=== PATIENT | female | born 1970 | race Caucasian/White ===

== ENCOUNTER 2019-07-04 20:52 | Emergency (ER) | payer MEDICARE, MEDICAID ==
[2019-07-04] MEDS ORDERED: Ketorolac 30 MG/ML SDV IVPUSH ONE (21:58)
[2019-07-04] MEDS ORDERED: Prochlorperazine 10 MG/2 ML SDV IVPUSH ONE (21:58)
[2019-07-04] MEDS ORDERED: Lactated Ringers 1,000 ML IV SCH (22:00)
--- NOTE | 2019-07-04 22:00 | EDM.PDOC ---
ED HPI GENERAL MEDICAL PROBLEM - General Chief Complaint: Flank Pain Stated Complaint: [facility] Time Seen by Provider: 07/04/19 21:54 Source of Information: Reports: Patient, EMS, RN Notes Reviewed History Limitations: Reports: No Limitations - History of Present Illness INITIAL COMMENTS - FREE TEXT/NARRATIVE: 49-year-old female presents emergency department today complaint of left flank pain, she states the pain came on suddenly today it does get very intense and then relaxes she has had some nausea and vomiting as well does have a history of nephrolithiasis several years ago arrived by EMS bilat flank pain Pain Score (Numeric/FACES): 8 - Related Data Allergies Allergy/AdvReac Type Severity Reaction Status Date / Time cefaclor [From Ceclor] Allergy Hives Verified 07/04/19 21:03 esomeprazole [From Nexium] Allergy Hives Verified 07/04/19 21:03 Penicillins Allergy Hives Verified 07/04/19 21:03 Home Meds: Home Meds Folic Acid 1 mg PO DAILY 07/04/19 [History] Hydrocodone/Acetaminophen [Hydrocodon-Acetaminophen 5-325] 1 each PO TID PRN # 10 tablet 07/04/19 [Rx] Ketorolac [Toradol] 10 mg PO TID PRN #20 tab 07/04/19 [Rx] Levothyroxine 200 mcg PO DAILY 07/04/19 [History] Methotrexate Sodium [Methotrexate] 25 mg PO WEEKLY 07/04/19 [History] Milnacipran [Savella] 50 mg PO BID 07/04/19 [History] Naproxen 500 mg PO BIDMEALS 07/04/19 [History] Omeprazole 20 mg PO DAILY 07/04/19 [History] buPROPion HCL [Bupropion Xl] 300 mg PO DAILY 07/04/19 [History] buPROPion HCl [Bupropion Xl] 150 mg PO DAILY 07/04/19 [History] predniSONE [Prednisone] 5 - 10 mg PO DAILY PRN 07/04/19 [History] Past Medical History Gastrointestinal History: Reports: GERD Genitourinary History: Reports: Renal Calculus, UTI, 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: , 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 Musculoskeletal History: Reports: Fracture Psychiatric History: Reports: Anxiety, Bipolar, Depression Endocrine/Metabolic History: Reports: Hypothyroidism, Obesity/BMI 30+ - Past Surgical History HEENT Surgical History: Reports: Eye Surgery, Tonsillectomy GI Surgical History: Reports: Cholecystectomy Female Surgical History: Reports: Oophorectomy, Tubal Ligation Musculoskeletal Surgical History: Reports: Shoulder Surgery Social & Family History - Tobacco Use Smoking Status *Q: Current Every Day Smoker Years of Tobacco use: 40 Packs/Tins Daily: 0.5 - Caffeine Use Caffeine Use: Reports: Soda - Recreational Drug Use Recreational Drug Use: No ED ROS GENERAL - Review of Systems Review Of Systems: See Below Constitutional: Reports: No Symptoms Respiratory: Reports: No Symptoms Cardiovascular: Reports: No Symptoms GI/Abdominal: Reports: Nausea, Vomiting : Reports: Flank Pain ED EXAM, GI/ABD - Physical Exam Exam: See Below Exam Limited By: No Limitations General Appearance: Alert, WD/WN, Mild Distress Respiratory/Chest: No Respiratory Distress, Lungs Clear, Normal Breath Sounds, No Accessory Muscle Use, Chest Non-Tender Cardiovascular: Regular Rate, Rhythm, No Murmur GI/Abdominal Exam: Soft, No Organomegaly, No Distention, Tender (Tender along left flank) Course - Vital Signs Last Recorded V/S: Last Vital Signs Temp 97.3 F 07/04/19 20:58 Pulse 97 07/04/19 22:38 Resp 16 07/04/19 20:58 BP 96/53 L 07/04/19 22:38 Pulse Ox 98 07/04/19 22:38 - Orders/Labs/Meds Orders: Active Orders 24 hr Category Date Time Status Lactated Ringers [Ringers, Lactated] 1,000 ml Med 07/04/19 22:00 Active IV ASDIRECTED Medication Orders Lactated Ringer's (Ringers, Lactated) 1,000 mls @ 999 mls/hr IV ASDIRECTED AUGUSTUS Last Admin: 07/04/19 22:11 Dose: 999 mls/hr Labs: Laboratory Tests 07/04/19 07/04/19 07/04/19 Range/Units 21:23 22:06 22:06 WBC 9.8 (4.5-11.0) K/uL RBC 4.39 (3.30-5.50) M/uL Hgb 13.4 (12.0-15.0) g/dL Hct 41.4 (36.0-48.0) % MCV 94 (80-98) fL MCH 31 (27-31) pg MCHC 32 (32-36) % Plt Count 287 (150-400) K/uL Neut % (Auto) 89 H (36-66) % Lymph % (Auto) 9 L (24-44) % Garfield % (Auto) 1 L (2-6) % Eos % (Auto) 1 L (2-4) % Baso % (Auto) 0 (0-1) % Sodium 141 (140-148) mmol/L Potassium 4.1 (3.6-5.2) mmol/L Chloride 105 (100-108) mmol/L Carbon Dioxide 27 (21-32) mmol/L Anion Gap 8.7 (5.0-14.0) mmol/L BUN 19 H (7-18) mg/dL Creatinine 0.8 (0.6-1.0) mg/dL Est Cr Clr Drug Dosing 68.76 mL/min Estimated GFR (MDRD) > 60 (>60) Glucose 91 (74-106) mg/dL Calcium 8.5 (8.5-10.1) mg/dL Urine Color Yellow (YELLOW) Urine Appearance Clear (CLEAR) Urine pH 7.0 (5.0-8.0) Ur Specific Artie 1.025 (1.008-1.030) Urine Protein Negative (NEGATIVE) mg/dL Urine Glucose (UA) Negative (NEGATIVE) mg/dL Urine Ketones Negative (NEGATIVE) mg/dL Urine Occult Blood Small H (NEGATIVE) Urine Nitrite Negative (NEGATIVE) Urine Bilirubin Negative (NEGATIVE) Urine Urobilinogen 1.0 (0.2-1.0) EU/dL Ur Leukocyte Esterase Trace H (NEGATIVE) Urine RBC 0-5 (0-5) Urine WBC 0-5 (0-5) Ur Epithelial Cells Few Amorphous Sediment Few Urine Bacteria Not seen Urine Mucus Not seen Meds: Medications Generic Name Dose Route Start Last Admin Trade Name Freq PRN Reason Stop Dose Admin Lactated Ringer's 1,000 mls @ 999 mls/hr 07/04/19 22:00 07/04/19 22:11 Ringers, Lactated IV 999 mls/hr ASDIRECTED AUGUSTUS Administration Discontinued Medications Generic Name Dose Route Start Last Admin Trade Name Freq PRN Reason Stop Dose Admin Ketorolac Tromethamine 30 mg 07/04/19 21:58 07/04/19 22:09 Toradol IVPUSH 07/04/19 21:59 30 mg ONETIME ONE Administration Prochlorperazine Edisylate 5 mg 07/04/19 21:58 07/04/19 22:06 Compazine IVPUSH 07/04/19 21:59 5 mg ONETIME ONE Administration Departure - Departure Time of Disposition: 22:54 Disposition: Home, Self-Care 01 Condition: Fair Clinical Impression: Nephrolithiasis - Discharge Information Prescriptions: Hydrocodone/Acetaminophen [Hydrocodon-Acetaminophen 5-325] 1 each PO TID PRN # 10 tablet PRN Reason: Pain Ketorolac [Toradol] 10 mg PO TID PRN #20 tab PRN Reason: Pain Instructions: Kidney Stones, [id number] Referrals: PCP,None [Primary Care Provider] - Forms: ED Department Discharge Additional Instructions: Continue to push fluids, try to strain your urine for the stone for analysis later on, use ketorolac for baseline pain control, use hydrocodone for breakthrough pain, please follow-up with your primary care in the next 3 to 5 days for reevaluation, call or return to the emergency department worsening of symptoms Sepsis Event Note - Evaluation Sepsis Screening Result: No Definite Risk - Focused Exam Vital Signs: Vital Signs Temp Pulse Resp BP Pulse Ox 07/04/19 22:38 97 96/53 L 98 07/04/19 20:58 97.3 F 95 16 126/79 100 Date Exam was Performed: 07/04/19 Time Exam was Performed: 22:53 - My Orders Last 24 Hours: My Active Orders 07/04/19 22:00 Lactated Ringers [Ringers, Lactated] 1,000 ml IV ASDIRECTED - Assessment/Plan Last 24 Hours: My Active Orders 07/04/19 22:00 Lactated Ringers [Ringers, Lactated] 1,000 ml IV ASDIRECTED Plan: Assessment Acuity = acute Site and laterality = 5 mm left-sided nephrolithiasis Etiology = unknown Manifestations = flank pain, nausea, vomiting Location of injury = Home Lab values = CBC, CMP, urinalysis unremarkable CT scan describes stone above Plan I did review lab work with her she had good relief from the Toradol prescription written for ketorolac 10 mg p.o. 3 times daily PRN total #20 as well as hydrocodone 5/325 1 tab p.o. 3 times daily PRN total #10 both those medications faxed to [facility] have her follow-up with her primary care in 3 to 5 days if no improvement or passing This note was dictated using [employer] voice recognition software please call with any questions on syntax or grammar.
--- NOTE | 2019-07-04 22:37 | CRLCT ---
INDICATION: Left flank pain TECHNIQUE: CT abdomen and pelvis without contrast. COMPARISON: May 22, 2007 FINDINGS: Lower chest: Unremarkable. Liver: Unremarkable. Spleen: Unremarkable. Pancreas: Unremarkable. Gallbladder and bile ducts: S/p cholecystectomy. Adrenal glands: Unremarkable. Kidneys: [id number] left hydronephrosis and hydroureter secondary to a 5 mm stone at the left ureterovesical junction. No additional renal stones identified in the left kidney. There is a punctate, nonobstructive stone in the right kidney. GI tract: Unremarkable. Appendix is normal. Vascular structures: Unremarkable. Lymph nodes: Unremarkable. Miscellaneous: Unremarkable. No free air or significant free fluid. Pelvic Organs: 3.3 cm cystic lesion in the right adnexa. Bones: Unremarkable for age. IMPRESSION: [id number] left hydronephrosis and hydroureter secondary to a 5 mm stone at the left ureterovesical junction. Punctate nonobstructive right nephrolithiasis. Cystic lesion in the right adnexa. This may represent a physiologic ovarian cyst. Consider nonurgent pelvic ultrasound for further evaluation if clinically indicated. Status post cholecystectomy. Please note that all CT scans at this facility use dose modulation, iterative reconstruction, and/or weight-based dosing when appropriate to reduce radiation dose to as low as reasonably achievable. Dictated by Jennie Damico MD @ Jul 04 2019 10:36PM Signed by Dr. Jennie Damico @ Jul 04 2019 10:36PM
== END 2019-07-04 23:11 | disposition home or self-care (01) ==
LOC: JP.ED 20:52
DX: N13.2 Hydronephrosis with renal and ureteral calculous obstruction (principal); E03.9 Hypothyroidism, unspecified; E66.9 Obesity, unspecified; Z68.39 Body mass index [BMI] 39.0-39.9, adult; F31.9 Bipolar disorder, unspecified; F41.9 Anxiety disorder, unspecified; K21.9 Gastro-esophageal reflux disease without esophagitis; Z88.1 Allergy status to other antibiotic agents; Z88.0 Allergy status to penicillin; Z88.8 Allergy status to other drugs, medicaments and biological substances
CPT/HCPCS: 36415; 74176; 80048; 81001; 85025; 96361; 96374; 96375; 99285; J0780; J1885; J7120

== ENCOUNTER 2020-08-19 22:41 | Emergency (ER) | payer MEDICARE, MEDICAID ==
[2020-08-20] MEDS ORDERED: Bacitracin Oint 1 GM U/D Packet TOP ONE (00:07)
[2020-08-20] MEDS ORDERED: Acetaminophen/HYDROcodone 325-5 MG Tab PO ONE (00:07)
--- NOTE | 2020-08-20 00:34 | EDM.PDOC ---
ED HPI GENERAL MEDICAL PROBLEM - General Chief Complaint: Lower Extremity Injury/Pain Stated Complaint: CUT ON R LEG ABOVE KNEE Time Seen by Provider: 08/19/20 22:52 Source of Information: Reports: Patient History Limitations: Reports: No Limitations - History of Present Illness INITIAL COMMENTS - FREE TEXT/NARRATIVE: Chief complaint: injury to right knee This is a 50 year old female presents to the ER with concerns of injury to the right knee. She was unloading a riding buyer and it fell back on her, the bagger hit her right knee. has a cut just above the knee with pain and edema to knee. 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) Right Knee Pain Score (Numeric/FACES): 8 - Related Data Allergies Allergy/AdvReac Type Severity Reaction Status Date / Time cefaclor [From Ceclor] Allergy Hives Verified 08/20/20 00:20 esomeprazole [From Nexium] Allergy Hives Verified 08/20/20 00:20 Penicillins Allergy Hives Verified 08/20/20 00:20 Home Meds: Home Meds Folic Acid 1 mg PO DAILY 07/04/19 [History] Levothyroxine 200 mcg PO DAILY 07/04/19 [History] Milnacipran [Savella] 50 mg PO BID 07/04/19 [History] Naproxen 500 mg PO BIDMEALS 07/04/19 [History] Omeprazole 20 mg PO DAILY 07/04/19 [History] buPROPion HCL [Bupropion Xl] 150 mg PO DAILY 07/04/19 [History] buPROPion HCL [Bupropion Xl] 300 mg PO DAILY 07/04/19 [History] metHOTREXate sodium [Methotrexate] 25 mg PO WEEKLY 07/04/19 [History] predniSONE [Prednisone] 5 - 10 mg PO DAILY PRN 07/04/19 [History] Past Medical History Gastrointestinal History: Reports: GERD Genitourinary History: Reports: Renal Calculus, UTI, 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: , 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 Musculoskeletal History: Reports: Fracture Psychiatric History: Reports: Anxiety, Bipolar, Depression Endocrine/Metabolic History: Reports: Hypothyroidism, Obesity/BMI 30+ - Infectious Disease History Infectious Disease History: Reports: Chicken Pox - Past Surgical History HEENT Surgical History: Reports: Eye Surgery, Tonsillectomy GI Surgical History: Reports: Cholecystectomy Female Surgical History: Reports: Oophorectomy, Tubal Ligation Musculoskeletal Surgical History: Reports: Shoulder Surgery Social & Family History - Tobacco Use Tobacco Use Status *Q: Current Every Day Tobacco User Years of Tobacco use: 41 Packs/Tins Daily: 0.5 - Caffeine Use Caffeine Use: Reports: Coffee, Soda, Tea - Recreational Drug Use Recreational Drug Use: No - Living Situation & Occupation 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, 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.) Review of Systems - Review of Systems Review Of Systems: See Below Constitutional: Reports: No Symptoms Eyes: Reports: No Symptoms Ears: Reports: No Symptoms Nose: Reports: No Symptoms Mouth/Throat: Reports: No Symptoms Respiratory: Reports: No Symptoms Cardiovascular: Reports: No Symptoms Musculoskeletal: Reports: Leg Pain, Joint Pain (right knee) Skin: Reports: Wound (right distal thigh with 1.5 cm laceration) Neurological: Reports: No Symptoms Psychiatric: Reports: No Symptoms ED EXAM, GENERAL - Physical Exam Exam: See Below Exam Limited By: No Limitations General Appearance: Alert, WD/WN, Mild Distress Respiratory/Chest: No Respiratory Distress Cardiovascular: Regular Rate, Rhythm Extremities: Joint Swelling (right knee increase pain with flexion, mild edema and bruising, laceration noted), Limited Range of Motion (right knee) Neurological: Alert, Oriented, CN II-XII Intact, Normal Cognition, Normal Gait, Normal Reflexes, No Motor/Sensory Deficits Psychiatric: Normal Affect, Normal Mood Skin Exam: Wound/Incision (laceration 1.5 cm right distal thigh.) Lymphatic: No Adenopathy ED TRAUMA EXTREMITY PROCEDURES - Laceration/Wound Repair Right Anterior Distal Knee Lac/Wound Length In cm: 1.5 Appearance: Subcutaneous, Linear, Clean Distal NVT: No Tendon Injury Anesthetic Type: Local Local Anesthesia - Lidocaine (Xylocaine): 1% Plain Local Anesthetic Volume: 5cc Skin Prep: Providone-Iodine (Betadine) Saline Irrigation (cc's): 40 Exploration/Debridement/Repair: Wound Explored, No Foreign Material Found Closed With: Sutures Suture Size: 4-0 Suture Type: Prolene, Interrupted, Simple # of Sutures: 3 Sterile Dressing Applied: Nurse Tetanus Status Addressed: Other (2015) Complications: No Course - Vital Signs Last Recorded V/S: Last Vital Signs Temp 97.5 F 08/20/20 00:14 Pulse 91 08/20/20 00:14 Resp 16 08/20/20 00:14 BP 117/75 08/20/20 00:14 Pulse Ox 98 08/20/20 00:14 - Orders/Labs/Meds Orders: Active Orders 24 hr Category Date Time Status Knee 3V Rt [CR] Stat Exams 08/20/20 00:05 Taken DAMIAN Bandage [Elastic Wrap] [OM.PC] Routine Oth 08/20/20 01:01 Ordered Meds: Medications Discontinued Medications Generic Name Dose Route Start Last Admin Trade Name Freq PRN Reason Stop Dose Admin Hydrocodone Bitart/Acetaminophen 1 tab 08/20/20 00:07 08/20/20 00:12 Acetaminophen/Hydrocodone 325-5 Mg Tab PO 08/20/20 00:08 1 tab ONETIME ONE Administration Bacitracin 1 dose 08/20/20 00:07 08/20/20 00:14 Bacitracin Oint 1 Gm U/D Packet TOP 08/20/20 00:08 1 dose ONETIME ONE Administration Lidocaine HCl 5 ml 08/20/20 00:06 08/20/20 00:14 Lidocaine 1% 5 Ml Sdv INJECT 08/20/20 00:07 5 ml ONETIME ONE Administration - Radiology Interpretation Free Text/Narrative:: 1. laceration repair with 3 sutures and bandage applied 2. xray of right knee to rule out any acute bony injury 3. hydrocodone 5-325 mg for pain control Ms. Driscoll agrees with plan of care. xray of right knee negative for any acute bony injury, radiology report pending. Departure - Departure Time of Disposition: 01:03 Disposition: Home, Self-Care 01 Preliminary Cause of *Q: Sepsis & Multi System Organ Failure Clinical Impression: Sprain of knee Laceration of knee, right Qualifiers: Encounter type: initial encounter Qualified Code(s): S81.011A - Laceration without foreign body, right knee, initial encounter - Discharge Information *PRESCRIPTION DRUG MONITORING PROGRAM REVIEWED*: Not Applicable *COPY OF PRESCRIPTION DRUG MONITORING REPORT IN PATIENT CAMILO: Not Applicable Instructions: Knee Sprain, Adult, [id number], Laceration Care, Adult, [id number] Referrals: Hugh Pineda MD [Primary Care Provider] - Forms: ED Department Discharge, ED Return to Work/School Form Care Plan Goals: right knee sprain -xray is negative for acute bony injury, radiology report pending -take anti-inflammatory pain meds as needed for pain control -Hydrocodone 5-325 mg one every 4 to 6 hours as need for acute pain -damian wrap -ice for two days -avoid bending, lifting or twisting of knee -follow up in Primary Care for recheck if not improved Right leg- laceration -repaired with 3 sutures -cover and apply antibiotic ointment to wound for 2- 3 days, then keep clean and dry -suture removal in 7 to 10 days -avoid immersion of wound in bath, [place] water or swimming pools til well healed. Return to ER for any increased pain, swelling, redness, drainage, fever, chills or not improved. Sepsis Event Note (ED) - Evaluation Sepsis Screening Result: No Definite Risk - Focused Exam Vital Signs: Vital Signs Temp Pulse Resp BP Pulse Ox 08/20/20 00:14 97.5 F 91 16 117/75 98 08/19/20 23:55 97.5 F 91 16 117/75 98 - Problem List & Annotations (1) Laceration of knee, right SNOMED Code(s): 85437164845837014 Code(s): S81.011A - LACERATION WITHOUT FOREIGN BODY, RIGHT KNEE, INIT ENCNTR Status: Acute Priority: High Current Visit: Yes Qualifiers: Encounter type: initial encounter Qualified Code(s): S81.011A - Laceration without foreign body, right knee, initial encounter (2) Sprain of knee SNOMED Code(s): 62463905 Code(s): S83.90XA - SPRAIN OF UNSPECIFIED SITE OF UNSPECIFIED KNEE, INIT ENCNTR Status: Acute Priority: High Current Visit: Yes - Problem List Review Problem List Initiated/Reviewed/Updated: Yes - My Orders Last 24 Hours: My Active Orders 08/20/20 00:05 Knee 3V Rt [CR] Stat 08/20/20 01:01 DAMIAN Bandage [Elastic Wrap] [OM.PC] Routine - Assessment/Plan Last 24 Hours: My Active Orders 08/20/20 00:05 Knee 3V Rt [CR] Stat 08/20/20 01:01 DAMIAN Bandage [Elastic Wrap] [OM.PC] Routine Plan: right knee sprain -take anti-inflammatory pain meds as needed for pain control -Hydrocodone 5-325 mg one every 4 to 6 hours as need for acute pain -damian wrap -ice for two days -avoid bending, lifting or twisting of knee -follow up in Primary Care for recheck if not improved Right leg- laceration -repaired with 3 sutures -cover and apply antibiotic ointment to wound for 2- 3 days, then keep clean and dry -suture removal in 7 to 10 days -avoid immersion of wound in bath, [place] water or swimming pools til well healed. Return to ER for any increased pain, swelling, redness, drainage, fever, chills or not improved.
--- NOTE | 2020-08-21 09:43 | CR ---
Knee 3V Rt CLINICAL HISTORY: Blunt force trauma FINDINGS: No acute fracture or dislocation is noted. There are no osseous lesions. Patella appears intact. Impression: Negative
== END 2020-08-20 01:18 | disposition home or self-care (01) ==
LOC: JP.ED 22:41
DX: S81.011A Laceration without foreign body, right knee, initial encounter (principal); E03.9 Hypothyroidism, unspecified; K21.9 Gastro-esophageal reflux disease without esophagitis; Z68.30 Body mass index [BMI] 30.0-30.9, adult; Z79.899 Other long term (current) drug therapy; Z88.0 Allergy status to penicillin; Z88.8 Allergy status to other drugs, medicaments and biological substances; W26.8XXA Contact with other sharp object(s), not elsewhere classified, initial encounter; W18.09XA Striking against other object with subsequent fall, initial encounter
CPT/HCPCS: 12001; 73562; 99283; A9270

== ENCOUNTER 2021-06-06 17:50 | Observation (INO) | payer MEDICARE, MEDICAID ==
[2021-06-06] MEDS ORDERED: Clindamycin Phosphate 900 MG in Sodium Chloride 0.9% 100 ML IV ONE (18:48)
[2021-06-06] MEDS ORDERED: Sodium Chloride 0.9% 10 ML Syringe FLUSH PRN (18:49)
[2021-06-06] MEDS ORDERED: HYDROmorphone 1 MG/ML Syringe IVPUSH ONE ×2 (18:51→21:03)
[2021-06-06] MEDS ORDERED: Acyclovir 500 MG in Sodium Chloride 0.9% 100 ML IV ONE (18:52)
[2021-06-06] MEDS ORDERED: predniSONE 20 MG Tab PO ONE (18:54)
[2021-06-06] MEDS ORDERED: Sodium Chloride 0.9% 75 ML IV SCH (19:30)
[2021-06-06] MEDS ORDERED: Iopamidol 612 MG/ML 100 ML Bottle IV SCH (19:30)
[2021-06-06 20:34] LABS: CORONAVIRUS COVID-19 NAA NEGATIVE (NEGATIVE)
[2021-06-06] MEDS ORDERED: Sodium Chloride 0.9% 1,000 ML IV SCH (21:30)
[2021-06-06] MEDS ORDERED: Bisacodyl 5 MG Tab PO PRN (21:30)
[2021-06-06] MEDS ORDERED: Ondansetron 4 MG Tab.DIS PO PRN (21:30)
[2021-06-06] MEDS ORDERED: LORazepam 2 MG/ML SDV IV PRN (21:30)
[2021-06-06] MEDS ORDERED: Albuterol 0.083% 2.5 MG/3 ML Neb Soln NEB PRN (21:30)
[2021-06-06] MEDS ORDERED: Acetaminophen 325 MG Tab PO PRN (21:30)
[2021-06-06] MEDS ORDERED: MILNACIPRAN 50 MG PO SCH (21:30)
[2021-06-06] MEDS ORDERED: HYDROmorphone 1 MG/ML Syringe IVPUSH PRN (21:30)
[2021-06-06] MEDS ORDERED: Docusate Sodium 100 MG Cap PO PRN (21:30)
[2021-06-06] MEDS: Enoxaparin 40 MG/0.4 ML Syringe SUBCUT SCH (22:18)
[2021-06-06] MEDS: Acetaminophen/HYDROcodone 325-5 MG Tab PO PRN (22:50)
[2021-06-06] MEDS: Gabapentin 100 MG Cap PO SCH (23:40)
[2021-06-07] MEDS: methylPREDNISolone Sodium Succinate 40 MG/1 ML SDV IVPUSH SCH ×3 (02:09→17:41)
[2021-06-07] MEDS ORDERED: Acyclovir 500 MG/10 ML SDV ONE (02:27)
[2021-06-07] MEDS ORDERED: Clindamycin Phosphate 600 MG/4 ML SDV ONE (02:27)
[2021-06-07] MEDS ORDERED: Sodium Chloride 0.9% 100 ML ONE (02:27)
[2021-06-07] MEDS ORDERED: Sodium Chloride 0.9% 50 ML ONE (02:28)
[2021-06-07] MEDS: Acetaminophen/HYDROcodone 325-5 MG Tab PO PRN ×5 (02:50→22:40)
[2021-06-07] MEDS ORDERED: Clindamycin Phosphate 600 MG in Dextrose 5% in Water 50 ML IV SCH ×2 (03:00)
[2021-06-07] MEDS: Melatonin 3 MG Tab PO PRN ×2 (03:41→22:40)
[2021-06-07] MEDS ORDERED: Acyclovir 500 MG in Sodium Chloride 0.9% 100 ML IV SCH ×3 (04:00→12:00)
[2021-06-07] MEDS: Gabapentin 100 MG Cap PO SCH ×3 (08:01→21:17)
[2021-06-07] MEDS: Folic Acid 1 MG Tab PO SCH (08:01)
[2021-06-07] MEDS ORDERED: OMEPRAZOLE PO SCH (09:00)
[2021-06-07] MEDS ORDERED: Non-Formulary Medication 1 Each (Levothyroxine [Levothyroxine] 200 MCG Tablet) PO SCH (09:00)
[2021-06-07] MEDS ORDERED: Methotrexate 2.5 MG Tab PO SCH (09:10)
[2021-06-07] MEDS ORDERED: Pantoprazole 40 MG Tab.CR PO SCH (11:30)
[2021-06-07] MEDS: Lidocaine 2% 30 ML, Alum Hydrox/Mag Hydrox/Simeth 30 ML, diphenhydrAMINE 75 MG PO PRN ×3 (12:51)
[2021-06-07] MEDS: Naproxen 250 MG Tab PO SCH ×2 (12:53→21:17)
[2021-06-07] MEDS: Lactobacillus Rhamnosus GG (Probiotic) Cap PO SCH ×2 (12:53→21:17)
[2021-06-07] MEDS: buPROPion 150 MG Tab.ER PO SCH (12:54)
[2021-06-07] MEDS: Levothyroxine 100 MCG, Levothyroxine 50 MCG, Levothyroxine 25 MCG PO SCH ×3 (12:55)
[2021-06-07] MEDS: Pantoprazole 40 MG Tab.CR PO SCH (12:56)
[2021-06-07] MEDS: SAVELLA 50 MG PO SCH (21:16)
[2021-06-07] MEDS: Enoxaparin 40 MG/0.4 ML Syringe SUBCUT SCH (21:18)
[2021-06-08] MEDS: methylPREDNISolone Sodium Succinate 40 MG/1 ML SDV IVPUSH SCH (01:56)
[2021-06-08] MEDS: Acetaminophen/HYDROcodone 325-5 MG Tab PO PRN ×5 (03:20→20:57)
[2021-06-08] MEDS: predniSONE 20 MG Tab PO SCH (07:47)
[2021-06-08] MEDS: Pantoprazole 40 MG Tab.CR PO SCH (07:47)
[2021-06-08] MEDS: Levothyroxine 100 MCG, Levothyroxine 50 MCG, Levothyroxine 25 MCG PO SCH ×3 (07:47)
[2021-06-08] MEDS: Naproxen 250 MG Tab PO SCH ×2 (08:25→20:55)
[2021-06-08] MEDS: Gabapentin 100 MG Cap PO SCH ×3 (08:26→20:55)
[2021-06-08] MEDS: buPROPion 150 MG Tab.ER PO SCH (08:26)
[2021-06-08] MEDS: Folic Acid 1 MG Tab PO SCH (08:26)
[2021-06-08] MEDS: Lactobacillus Rhamnosus GG (Probiotic) Cap PO SCH ×2 (08:26→20:56)
[2021-06-08] MEDS: SAVELLA 50 MG PO SCH ×2 (08:27→20:54)
[2021-06-08] MEDS: VALACYCLOVIR 1000 MG PO SCH ×3 (10:46→20:56)
[2021-06-08] MEDS: Lidocaine 2% 30 ML, Alum Hydrox/Mag Hydrox/Simeth 30 ML, diphenhydrAMINE 75 MG PO PRN ×3 (10:50)
[2021-06-08] MEDS: Clindamycin HCl 150 MG Cap PO SCH ×2 (14:03→20:56)
[2021-06-08] MEDS: Enoxaparin 40 MG/0.4 ML Syringe SUBCUT SCH (20:56)
[2021-06-09] MEDS: Acetaminophen/HYDROcodone 325-5 MG Tab PO PRN ×2 (03:13→07:14)
[2021-06-09] MEDS: Pantoprazole 40 MG Tab.CR PO SCH (07:16)
[2021-06-09] MEDS: Levothyroxine 100 MCG, Levothyroxine 50 MCG, Levothyroxine 25 MCG PO SCH ×3 (07:16)
[2021-06-09] MEDS: predniSONE 20 MG Tab PO SCH (07:16)
[2021-06-09] MEDS: Lactobacillus Rhamnosus GG (Probiotic) Cap PO SCH (09:02)
[2021-06-09] MEDS: VALACYCLOVIR 1000 MG PO SCH (09:02)
[2021-06-09] MEDS: Gabapentin 100 MG Cap PO SCH (09:02)
[2021-06-09] MEDS: Folic Acid 1 MG Tab PO SCH (09:02)
[2021-06-09] MEDS: SAVELLA 50 MG PO SCH (09:02)
[2021-06-09] MEDS: buPROPion 150 MG Tab.ER PO SCH (09:02)
[2021-06-09] MEDS: Clindamycin HCl 150 MG Cap PO SCH (09:02)
[2021-06-09] MEDS: Naproxen 250 MG Tab PO SCH (09:02)
== END 2021-06-09 11:24 | disposition home or self-care (01) ==
LOC: JP.ED 17:50 → JP.MS 21:05
PROVIDERS: ADMIT Internal Medicine; ATTEND Internal Medicine
DX: L03.211 Cellulitis of face (principal); M06.9 Rheumatoid arthritis, unspecified; B02.29 Other postherpetic nervous system involvement; B02.21 Postherpetic geniculate ganglionitis; F41.9 Anxiety disorder, unspecified; E03.9 Hypothyroidism, unspecified; F17.210 Nicotine dependence, cigarettes, uncomplicated; K21.9 Gastro-esophageal reflux disease without esophagitis; F32.A Depression, unspecified; E66.01 Morbid (severe) obesity due to excess calories; Z68.41 Body mass index [BMI] 40.0-44.9, adult; Z88.1 Allergy status to other antibiotic agents; Z88.0 Allergy status to penicillin; Z88.3 Allergy status to other anti-infective agents; Z79.890 Hormone replacement therapy; Z20.822 Contact with and (suspected) exposure to COVID-19
CPT/HCPCS: 0241U; 36415; 70491; 80048; 83690; 84443; 85025; 86140; 94640; 96365; 96375; 99222; 99232; 99238; 99284; 99285-25; A9270-GY; J0133; J1170; J1650; J2920; J3490; J7030; J7050; J7512; Q0162; Q9967

== ENCOUNTER 2021-06-28 14:01 | Emergency (ER) | payer MEDICARE, MEDICAID | END 2021-06-28 17:05 | disposition home or self-care (01) | LOC: JP.ED 14:01 | DX: N93.8 Other specified abnormal uterine and vaginal bleeding (principal); K21.9 Gastro-esophageal reflux disease without esophagitis; E66.9 Obesity, unspecified; Z68.41 Body mass index [BMI] 40.0-44.9, adult; Z88.0 Allergy status to penicillin; Z88.1 Allergy status to other antibiotic agents; Z79.899 Other long term (current) drug therapy; Z72.0 Tobacco use | CPT/HCPCS: 36415; 76830; 76856; 80048; 85025; 99283; 99284-25 ==